=== PATIENT | male | born 1980 | race Caucasian/White ===

== ENCOUNTER 2016-10-08 14:54 | Emergency (ER) | payer OTHER ==
[~2016-10-08] VITALS: Ht 193 cm; Wt 115.2 kg
--- NOTE | 2016-10-08 15:00 | NUR ---
PT MARKED THE PERIMETER OF THE ABSCESS STRTED A FEW DAYS AGO AND IT IS GETTING WORSE.
== END 2016-10-08 15:13 | disposition home or self-care (01) ==
LOC: ER 15:09
DX: A49.02 Methicillin resistant Staphylococcus aureus infection, unspecified site (principal); R50.9 Fever, unspecified; F17.200 Nicotine dependence, unspecified, uncomplicated; Z88.0 Allergy status to penicillin
CPT/HCPCS: A4663